=== PATIENT | female | born 2000 | race Caucasian/White ===

== ENCOUNTER 2023-10-08 14:17 | Emergency (ER) | payer OTHER ==
[~2023-10-08] VITALS: Ht 161.3 cm; Wt 58.2 kg
[2023-10-08 14:45] VITALS: BP 110/68; PULSE 68; RESP 20; TEMP 97.8; O2SAT 99
[2023-10-08] MEDS ORDERED: BACI-418 TP (15:10)
[2023-10-08] MEDS ORDERED: AMOX1TAB8 PO (15:10)
== END 2023-10-08 15:13 | disposition home or self-care (01) ==
LOC: MED 14:17
DX: S61.251A Open bite of left index finger without damage to nail, initial encounter (principal); Z79.2 Long term (current) use of antibiotics; R03.0 Elevated blood-pressure reading, without diagnosis of hypertension; W55.01XA Bitten by cat, initial encounter; Y93.89 Activity, other specified; Y92.89 Other specified places as the place of occurrence of the external cause; Y99.8 Other external cause status
CPT/HCPCS: 99283